=== PATIENT | female | born 1965 | race Caucasian/White ===

== ENCOUNTER 2018-06-30 17:17 | Emergency (ER) | payer OTHER ==
[2018-06-30 17:35] VITALS: BMI 24.7
--- NOTE | 2018-06-30 17:36 | PDOC ---
History of Present Illness - History of Present Illness Initial Comments: 06/30/18 18:22 The patient is a 52 year old female, with a significant PMH of asthma, HIV, thyroid problem who presents to the emergency department with chest pain for the past six days. Patient states the chest pain is intermittent but has been more constant today, with radiation to the back that is exacerbated with deep breathing or coughing. Patient reports the chest pain is also exacerbated when she leans forward. Patient had also noticed her heart racing but states that has resolved. Patient did also complain of abdominal pain and nausea yesterday but denies any today. Patient has not taken any medications at home. The patient denies shortness of breath, headache and dizziness. Denies fever, chills, vomit, diarrhea and constipation. Denies dysuria, frequency, urgency and hematuria. Allergies: NKA Past surgical history: None reported. Social history: No reported alcohol, drug or cigarette use. PCP: in the [place]. <Norma Chan - Last Filed: 06/30/18 19:10> - General History Source: Patient Exam Limitations: No Limitations <Gavi Naik - Last Filed: 07/01/18 09:25> - General Chief Complaint: Pain, Acute Stated Complaint: CHEST PAIN Time Seen by Provider: 06/30/18 17:18 Past History <Norma Chan - Last Filed: 06/30/18 19:10> - Past Medical History Asthma: Yes COPD: No Thyroid Disease: Yes - Suicide/Smoking/Psychosocial Hx Smoking History: Current some day smoker Have you smoked in the past 12 months: Yes Number of Cigarettes Smoked Daily: 2 Information on smoking cessation initiated: Yes 'Breaking Loose' booklet given: 06/30/18 Hx Alcohol Use: Yes Drug/Substance Use Hx: No Substance Use Type: Alcohol <Gavi Naik - Last Filed: 07/01/18 09:25> - Past Medical History Allergies/Adverse Reactions: Allergies Allergy/AdvReac Type Severity Reaction Status Date / Time metoclopramide [From Reglan] Allergy Verified 06/30/18 17:35 Home Medications: Ambulatory Orders Budesonide/Formeterol Fumarate [SYMBICORT 80/4.5mcg -] 1 inh PO DAILY 06/30/18 Emtricita/Rilpivirine/Tenof Df [Complera Tablet] 1 each PO DAILY 06/30/18 Methimazole [Tapazole -] 5 mg PO DAILY 06/30/18 Prednisone [Prednisone 50 MG TABLETS] 50 mg PO DAILY #5 tablet 06/30/18 Review of Systems - Review of Systems Able to Perform ROS?: Yes Comments:: 06/30/18 18:03 ADULT ROS GENERAL/CONSTITUTIONAL: No fever or chills. No weakness. HEAD, EYES, EARS, NOSE AND THROAT: No change in vision. No ear pain or discharge. No sore throat. CARDIOVASCULAR: (+) Chest pain. No shortness of breath. RESPIRATORY: No cough, wheezing, or hemoptysis. GASTROINTESTINAL: No nausea, vomiting, diarrhea or constipation. GENITOURINARY: No dysuria, frequency, or change in urination. MUSCULOSKELETAL: No joint or muscle swelling or pain. No neck or back pain. SKIN: No rash NEUROLOGIC: No headache, vertigo, loss of consciousness, or change in strength/ sensation. ENDOCRINE: No increased thirst. No abnormal weight change. HEMATOLOGIC/LYMPHATIC: No anemia, easy bleeding, or history of blood clots. ALLERGIC/IMMUNOLOGIC: No hives or skin allergy. <Norma Chan - Last Filed: 06/30/18 19:10> *Physical Exam - Vital Signs Last Vital Signs Temp Pulse Resp BP Pulse Ox 98.7 F 71 18 133/69 100 06/30/18 17:17 06/30/18 17:17 06/30/18 17:17 06/30/18 17:17 06/30/18 17:17 - Physical Exam Comments: 06/30/18 18:04 ADULT PE GENERAL: The patient is in no acute distress. HEAD: Normal with no signs of trauma. EYES: PERRLA, EOMI, sclera anicteric, conjunctiva clear. ENT: Ears normal, nares patent, oropharynx clear without exudates. Moist mucous membranes. NECK: Normal range of motion, supple without lymphadenopathy, JVD, or masses. LUNGS: Limited exam. No wheezing. No crackles or rhonchi. (+) Pain with deep breathing. HEART:Regular rate and rhythm, normal S1 and S2 without murmur, rub or gallop. ABDOMEN: Soft, nontender, normoactive bowel sounds. No guarding, no rebound. No masses palpable. EXTREMITIES: Normal range of motion, no edema. No clubbing or cyanosis. No erythema, or tenderness. NEUROLOGICAL: Cranial nerves II through XII grossly intact. Normal speech. No focal neurological deficits. MUSCULOSKELETAL: Back non-tender to palpation, no CVA tenderness SKIN: Warm, Dry, normal turgor, no rashes or lesions noted. <Norma Chan - Last Filed: 06/30/18 19:10> - Vital Signs Last Vital Signs Temp Pulse Resp BP Pulse Ox 98.7 F 71 18 133/69 100 06/30/18 17:17 06/30/18 17:17 06/30/18 17:17 06/30/18 17:17 06/30/18 17:17 <Gavi Naik - Last Filed: 07/01/18 09:25> ED Treatment Course - LABORATORY CBC & Chemistry Diagram: 06/30/18 18:21 06/30/18 18:21 <Norma Chan - Last Filed: 06/30/18 19:10> - LABORATORY CBC & Chemistry Diagram: 06/30/18 18:21 06/30/18 18:21 <Gavi Naik - Last Filed: 07/01/18 09:25> Medical Decision Making - Medical Decision Making 06/30/18 19:00 52 YO f S/P CHEST PAIN radiating to the back (+) pleurisy NO COUGH No fevers or chills No prior episodes like this No recent travel No ill contacts H/o HIV (CD4 200 or 300, VL ???, on HAART, no opportunistic infections) EKG: Twelve-lead EKG was performed and reviewed by me. There is normal sinus rhythm with a normal rate. The axis is normal. The intervals are normal. There are no ST or T wave abnormalities. Impression: Normal twelve-lead EKG Labs pending CXR pending <Gavi Naik - Last Filed: 07/01/18 09:25> *DC/Admit/Observation/Transfer - Attestations Scribe Attestion: 06/30/18 18:04 Documentation prepared by Norma Chan, acting as emergency medical tech for Gavi Naik MD. <Norma Chan - Last Filed: 06/30/18 19:10> <Gavi Naik - Last Filed: 07/01/18 09:25> Diagnosis at time of Disposition: Chest pain - Discharge Dispostion Disposition: HOME Condition at time of disposition: Stable - Prescriptions Prescriptions: Prednisone [Prednisone 50 MG TABLETS] 50 mg PO DAILY #5 tablet - Patient Instructions Printed Discharge Instructions: DI for Atypical Chest Pain Additional Instructions: Your labs, X ray and CT scan did not show any concerning cause for your chest pain. However, this does not rule out all heart and lung disease. You must follow up with your primary doctor within 1 week for further evaluation. If you experience worsening chest pain, shortness of breath, fevers, or any other concerning symptoms, return to the ER immediately. Your CT scan also showed a small nodule in the left lung. While this is most likely harmless, there is a chance it may represent cancer if gets larger. Ask your doctor for a repeat CT scan in 6 months to make sure it has not changed in size. Joyce laboratorios, radiografas y tomografas computarizadas no mostraron ninguna causa preocupante para carlos dolor de pecho. Sin embargo, esto no descarta todas las enfermedades cardacas y pulmonares. Debe hacer un seguimiento con carlos mdico de cabecera dentro de 1 semana para neema evaluacin adicional. Si experimenta un empeoramiento del dolor en el pecho, dificultad para respirar , fiebre o cualquier otro sntoma relacionado, regrese a la leandra de emergencias inmediatamente. Carlos tomografa computarizada tambin mostr un pequeo ndulo en el pulmn henry. Si jose es probable que esto sea inofensivo, existe la posibilidad de que represente un cncer si aumenta de tamao. Pdale a carlos mdico que le repita neema tomografa computarizada en 6 meses para asegurarse de que no haya cambiado de tamao. Print Language: ETHIOPIAN
[2018-06-30] MEDS ORDERED: ACETAMINOPHEN 1000 MG/100 ML VIAL (NON FORMULARY) IVPB ONE (18:01)
[2018-06-30] MEDS ORDERED: ACETAMINOPHEN INJECTION 100 ML IVPB ONE (18:29)
[2018-06-30 18:46] LABS: BASO % 0.8 % (0-2.0); EOS % 1.3 % (0-4.5); HEMATOCRIT 33.8 % (32.4-45.2); HEMOGLOBIN 10.5 GM/dl (10.7-15.3); LYMPH % 23.8 % (8-40); MCH 23.9 pg (25.7-33.7); MEAN CELL VOLUME 77.2 fl (80-96); MONO % 6.5 % (3.8-10.2); NEUT % 67.6 % (42.8-82.8); PLATELET COUNT 309 K/MM3 (134-434); RBC 4.38 M/mm3 (3.60-5.2); RDW 13.1 % (11.6-15.6); WHITE BLOOD COUNT 6.2 K/mm3 (4.0-10.8)
[2018-06-30 18:59] LABS: ALBUMIN 3.6 g/dl (3.5-5.0); ALK PHOS 92 U/L (32-92); ANION GAP 5 MMOL/L (8-16); BILIRUBIN,TOTAL 0.2 mg/dl (0.2-1.0); BLOOD UREA NITROGEN 12 mg/dl (7-18); CALCIUM 8.7 mg/dl (8.4-10.2); CHLORIDE 103 mmol/L (98-107); CO2 25 mmol/L (22-28); CREATININE 0.7 mg/dl (0.6-1.3); GLUCOSE,RANDOM 108 mg/dl (74-106); SGOT/AST 28 U/L (10-42); SGPT/ALT 22 U/L (10-40); SODIUM 133 mmol/L (136-145); TOT PROT 8.5 g/dl (6.4-8.3)
--- NOTE | 2018-06-30 21:36 | PDOC ---
*Physical Exam - Vital Signs Last Vital Signs Temp Pulse Resp BP Pulse Ox 98.7 F 71 18 133/69 100 06/30/18 17:17 06/30/18 17:17 06/30/18 17:17 06/30/18 17:17 06/30/18 17:17 ED Treatment Course - LABORATORY CBC & Chemistry Diagram: 06/30/18 18:21 06/30/18 18:21 - ADDITIONAL ORDERS Additional order review: Laboratory Results 06/30/18 06/30/18 06/30/18 18:32 18:21 18:21 D-Dimer Cancelled Sodium Potassium Chloride Carbon Dioxide Anion Gap BUN Creatinine Creat Clearance w eGFR Random Glucose Calcium Total Bilirubin AST ALT Alkaline Phosphatase Creatine Kinase Troponin I < 0.03 Total Protein Albumin Urine HCG, Qual Negative 06/30/18 18:21 D-Dimer Sodium 133 L Potassium 4.0 Chloride 103 Carbon Dioxide 25 Anion Gap 5 L BUN 12 Creatinine 0.7 Creat Clearance w eGFR > 60 Random Glucose 108 H Calcium 8.7 Total Bilirubin 0.2 AST 28 ALT 22 Alkaline Phosphatase 92 Creatine Kinase 138 Troponin I Total Protein 8.5 H Albumin 3.6 Urine HCG, Qual 06/30/18 18:21 RBC 4.38 MCV 77.2 L MCHC 31.0 L RDW 13.1 MPV 10.0 Neutrophils % 67.6 Lymphocytes % 23.8 Monocytes % 6.5 Eosinophils % 1.3 Basophils % 0.8 - Medications Given in the ED: ED Medications Discontinued Medications Generic Name Dose Route Start Last Admin Trade Name Freq PRN Reason Stop Dose Admin Acetaminophen 1,000 mg 06/30/18 18:01 06/30/18 18:42 Ofirmev Injection - IVPB 06/30/18 18:02 1,000 mg ONCE ONE Administration Medical Decision Making - Medical Decision Making 06/30/18 21:35 52 F with h/o HIV on ARVs, Asthma, presenting to ED with pleuritic chest pain x 6 days. Pt signed out to me by Dr. Naik at 7PM, pending labs and possible CTA. Labs thus far unremarkable. EKG normal and trop negative D dimer still pending (first sample hemolyzed, repeat sent) 06/30/18 21:59 D dimer elevated >1200 Pt reassessed - continues to have some pain, though it is improved with tylenol. Pt states that she feels like this is similar to her previous asthma flares, though lungs are clear without wheezing. Will trial duonebs CTA ordered to r/o PE. 06/30/18 23:36 CTA negative for PE. Pt reassessed - has improvement in pain with nebulizer. Lungs continue to be clear. Will send home with nebs and steroids for possible asthma flare. Pt is well appearing, with normal vitals. Clinically stable for DC at this time. I discussed the physical exam findings, ancillary test results and final diagnoses with the patient. I answered all of the patient's questions. The patient was satisfied with the care received and felt comfortable with the discharge plan and treatment plan. The patient agrees to follow up with the primary care physician within 24-72 hours. *DC/Admit/Observation/Transfer Diagnosis at time of Disposition: Chest pain - Discharge Dispostion Disposition: HOME Condition at time of disposition: Stable - Referrals - Patient Instructions Printed Discharge Instructions: DI for Atypical Chest Pain Additional Instructions: Your labs, X ray and CT scan did not show any concerning cause for your chest pain. However, this does not rule out all heart and lung disease. You must follow up with your primary doctor within 1 week for further evaluation. If you experience worsening chest pain, shortness of breath, fevers, or any other concerning symptoms, return to the ER immediately. Your CT scan also showed a small nodule in the left lung. While this is most likely harmless, there is a chance it may represent cancer if gets larger. Ask your doctor for a repeat CT scan in 6 months to make sure it has not changed in size. Joyce laboratorios, radiografas y tomografas computarizadas no mostraron ninguna causa preocupante para carlos dolor de pecho. Sin embargo, esto no descarta todas las enfermedades cardacas y pulmonares. Debe hacer un seguimiento con carlos mdico de cabecera dentro de 1 semana para neema evaluacin adicional. Si experimenta un empeoramiento del dolor en el pecho, dificultad para respirar , fiebre o cualquier otro sntoma relacionado, regrese a la leandra de emergencias inmediatamente. Carlos tomografa computarizada tambin mostr un pequeo ndulo en el pulmn henry. Si jose es probable que esto sea inofensivo, existe la posibilidad de que represente un cncer si aumenta de tamao. Pdale a carlos mdico que le repita neema tomografa computarizada en 6 meses para asegurarse de que no haya cambiado de tamao. Print Language: KHMER - Post Discharge Activity - Attestations Physician Attestion: 06/30/18 23:44 I, Dr. Juanito Rosario MD, attest that this document has been prepared under my direction and personally reviewed by me in its entirety. I further attest, that it accurately reflects all work, treatment, procedures and medical decision -making performed by me.
[2018-06-30] MEDS ORDERED: ALBUTEROL SO4 2.5/IPRATROPIUM 0.5 INH SOL 3 ML VIAL.NEB. NEB ONE ×2 (21:59→22:01)
[2018-06-30 22:24] VITALS: BP 117/74; PULSE 75; TEMP 98.2
--- NOTE | 2018-07-01 09:49 | EKG ---
Test Reason : Blood Pressure : / mmHG Vent. Rate : 069 BPM Atrial Rate : 069 BPM P-R Int : 136 ms QRS Dur : 092 ms QT Int : 394 ms P-R-T Axes : 075 075 049 degrees QTc Int : 422 ms NORMAL SINUS RHYTHM POSSIBLE LEFT ATRIAL ENLARGEMENT BORDERLINE ECG NO PREVIOUS ECGS AVAILABLE Confirmed by KATIANA FOUNTAIN, TRINITY ([id number]) on 07/01/2018 9:49:46 AM Referred By: DR WALKER Confirmed By:TRINITY SAAB MD
== END 2018-06-30 23:46 | disposition home or self-care (01) ==
LOC: FER 17:17
PROC: 3E0F7GC Introduction of Other Therapeutic Substance into Respiratory Tract, Via Natural or Artificial Opening (ICD-10-PCS; principal; 2018-06-30)
PROC: 3E033NZ Introduction of Analgesics, Hypnotics, Sedatives into Peripheral Vein, Percutaneous Approach (ICD-10-PCS; 2018-06-30)
DX: R07.9 Chest pain, unspecified (principal); Z21 Asymptomatic human immunodeficiency virus [HIV] infection status; J45.909 Unspecified asthma, uncomplicated; E07.9 Disorder of thyroid, unspecified; F17.210 Nicotine dependence, cigarettes, uncomplicated
CPT/HCPCS: 36415; 71045-TC-FY; 71275-TC; 80053; 82550; 84484; 84703; 85025; 85379; 93005; 94640; 96374; 99282-25; J0131